=== PATIENT | female | born 1945 | race Two or more races ===

== ENCOUNTER 2017-11-17 14:52 | Emergency (ER) | payer OTHER ==
[2017-11-17] MEDS ORDERED: predniSONE 20 MG TAB PO ONE (15:20)
[2017-11-17] MEDS ORDERED: valACYclovir 500 MG TAB PO ONE (15:20)
--- NOTE | 2017-11-17 15:22 | EDPHY ---
H & P Stated Complaint: L facial droop Time Seen by Provider: 11/17/17 15:10 HPI/ROS: CHIEF COMPLAINT: Left-sided facial weakness HISTORY OF PRESENT ILLNESS: The patient is a 72-year-old [place]i-speaking female who states that she has had left-sided facial droop for the last 4 days. She states that it began with pain that is now dulled. No fever. No trauma. No involvement of her hands or legs. No dizziness. No trouble ambulating. No trouble with speech. No recent fevers or infections. No chest pain. No rash. No vision changes. REVIEW OF SYSTEMS: Constitutional: denies: chills, fever, recent illness, recent injury EENTM: denies: blurred vision, double vision, nose congestion Respiratory: denies: cough, shortness of breath Cardiac: denies: chest pain, irregular heart rate, lightheadedness, palpitations Gastrointestinal/Abdominal: denies: abdominal pain, diarrhea, nausea, vomiting, blood streaked stools Genitourinary: denies: dysuria, frequency, hematuria, pain Musculoskeletal: denies: joint pain, muscle pain Skin: denies: lesions, rash, jaundice, bruising Neurological: See HPI denies: headache Hematologic/Lymphatic: denies: blood clots, easy bleeding, easy bruising Immunologic/allergic: denies: HIV/AIDS, transplant - Physical Exam General Appearance: WD/WN, mild distress Eyes, Ears, Nose, Throat Exam: PERRL/EOMI, normal ENT inspection, pharynx normal Neck: non-tender, full range of motion, supple, normal inspection. No: stiff neck, tender lateral Cardiovascular/Chest: normal peripheral pulses, regular rate, rhythm Respiratory: chest non-tender, lungs clear, normal breath sounds. No: crackles , rhonchi Gastrointestinal/Abdominal: normal bowel sounds, non tender, soft Back Exam: normal inspection Extremity: normal range of motion, non-tender, normal inspection Mental Status: alert, oriented x 3 CN's Exam: Left-sided facial droop including the forehead, on equal smile, normal tongue. normal hearing, normal speech, PERRL, normal eye position, normal gag reflex, normal pupil position, normal speech. No: gaze palsy, Coordination/Gait: normal finger to nose, normal gait Motor/Sensory: normal. No: motor deficit, sensory deficit, pronator drift (R), pronator drift (L), weak motor strength RUE, weak motor strength LUE, weak motor strength RLE, weak motor strength LLE DTR: tricep (R): 2+, tricep (L): 2+, knee (R): 2+, knee (L): 2+ Skin Exam: warm/dry, normal color Lymphatic: no adenopathy Source: Patient Exam Limitations: No limitations - Personal History Current Tetanus/Diphtheria Vaccine: Yes Current Tetanus Diphtheria and Acellular Pertussis (TDAP): Yes - Medical/Surgical History Hx Asthma: No Hx Chronic Respiratory Disease: No Hx Diabetes: Yes Hx Cardiac Disease: No Hx Renal Disease: No Hx Cirrhosis: No Hx Alcoholism: No Hx HIV/AIDS: No Hx Splenectomy or Spleen Trauma: No Other PMH: HTN, DM, - Family History Significant Family History: No pertinent family hx - Social History Smoking Status: Never smoked Alcohol Use: None Constitutional: Initial Vital Signs Temperature (C) 36.8 C 11/17/17 15:01 Heart Rate 81 11/17/17 15:01 Respiratory Rate 16 11/17/17 15:01 Blood Pressure 204/98 H 11/17/17 15:01 O2 Sat (%) 96 11/17/17 15:01 O2 Delivery Mode Room Air Allergies/Adverse Reactions: No Known Allergies Allergy (Unverified 11/17/17 14:59) Home Medications: Medication Instructions Recorded Aspirin 11/17/17 Irbesartan 11/17/17 Metformin HCl 11/17/17 Valacyclovir HCl [Valtrex] 1,000 mg PO TID #21 tab 11/17/17 predniSONE 60 mg PO DAILY #15 tab 11/17/17 Medical Decision Making - Diagnostics Imaging Results: Imaging Impressions Brain MRI 11/17/17 15:19 Impression: 1. Possible tiny foci of diffusion restriction in the left chavez, which could represent a small lacunar infarct versus artifact. 2. Mild periventricular and deep hemispheric white matter change that can be seen with small vessel ischemic disease. No other findings for an acute infarct. 3. Generalized cerebral atrophy. Results called and discussed with Gregorio Quintana M.D., on November 17, 2017 at 1732. ED Course/Re-evaluation: 5:30 p.m. the MRI is reassuring. 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 I will treat with valacyclovir and prednisone. She also has a elevated TSH. I will add on a free T4 and have her follow up with her primary. The patient understands and agrees with this plan as does her family. Differential Diagnosis: Partial list of the Differential diagnosis considered include but were not limited to; CVA, Heredia's palsy, hypothyroid and although unlikely based on the history and physical exam, I also considered zoster, cellulitis, trauma. I discussed these differential diagnoses and the plan with the patient as well as the usual and expected course. The patient understands that the diagnosis is provisional and that in medicine we are not always correct and that further workup is often warranted. Usual and customary warnings were given. All of the patient's questions were answered. The patient was instructed to return to the emergency department should the symptoms at all worsen or return, otherwise to followup with the physician as we discussed. - Data Points Laboratory Results: Laboratory Results 11/17/17 15:14 11/17/17 15:14 11/17/17 11/17/17 11/17/17 15:14 15:14 15:14 WBC 10.05 10^3/uL H 10^3/uL (3.80-9.50) RBC 4.77 10^6/uL 10^6/uL (4.18-5.33) Hgb 15.5 g/dL g/dL (12.6-16.3) Hct 44.3 % % (38.0-47.0) MCV 92.9 fL fL (81.5-99.8) MCH 32.5 pg pg (27.9-34.1) MCHC 35.0 g/dL g/dL (32.4-36.7) RDW 13.0 % % (11.5-15.2) Plt Count 206 10^3/uL 10^3/uL (150-400) MPV 9.7 fL fL (8.7-11.7) Neut % (Auto) 43.4 % % (39.3-74.2) Lymph % (Auto) 43.3 % % (15.0-45.0) [place] % (Auto) 9.7 % % (4.5-13.0) Eos % (Auto) 2.2 % % (0.6-7.6) Baso % (Auto) 0.8 % % (0.3-1.7) Nucleat RBC Rel Count 0.0 % % (0.0-0.2) Absolute Neuts (auto) 4.37 10^3/uL 10^3/uL (1.70-6.50) Absolute Lymphs (auto) 4.35 10^3/uL H 10^3/uL (1.00-3.00) Absolute Monos (auto) 0.97 10^3/uL H 10^3/uL (0.30-0.80) Absolute Eos (auto) 0.22 10^3/uL 10^3/uL (0.03-0.40) Absolute Basos (auto) 0.08 10^3/uL 10^3/uL (0.02-0.10) Absolute Nucleated RBC 0.00 10^3/uL 10^3/uL (0-0.01) Immature Gran % 0.6 % % (0.0-1.1) Immature Gran # 0.06 10^3/uL 10^3/uL (0.00-0.10) Sodium 144 mEq/L mEq/L (135-145) Potassium 4.5 mEq/L mEq/L (3.3-5.0) Chloride 102 mEq/L mEq/L (97-110) Carbon Dioxide 24 mEq/l mEq/l (22-31) Anion Gap 18 mEq/L H mEq/L (8-16) BUN 18 mg/dL mg/dL (7-23) Creatinine 0.7 mg/dL mg/dL (0.6-1.0) Estimated GFR > 60 Glucose 141 mg/dL H mg/dL (70-100) Calcium 10.0 mg/dL mg/dL (8.5-10.4) TSH 9.210 uIU/mL H uIU/mL (0.465-4.680) Free T4 0.97 ng/dL ng/dL (0.59-2.19) Medications Given: Discontinued Medications Prednisone (Prednisone) 60 mg PO EDNOW ONE Stop: 11/17/17 15:21 Last Admin: 11/17/17 15:31 Dose: 60 mg Valacyclovir HCl (Valtrex) 1,000 mg PO EDNOW ONE Stop: 11/17/17 15:21 Last Admin: 11/17/17 15:31 Dose: 1,000 mg Departure - Departure Disposition: Home, Routine, Self-Care Clinical Impression: Heredia's palsy Hypothyroidism Qualifiers: Hypothyroidism type: unspecified Qualified Code(s): E03.9 - Hypothyroidism, unspecified Condition: Fair Instructions: Heredia Palsy (ED), Hypothyroidism (ED) Additional Instructions: Carmela josé sharon de seguimiento con la clinica [facility] en 2 - 3 jarquin. Referrals: [facility],. [Clinic] - 2-3 days, call for appt. Prescriptions: predniSONE 60 mg PO DAILY #15 tab Valacyclovir HCl [Valtrex] 1,000 mg PO TID #21 tab Print Language: [place]
[2017-11-17 15:32] LABS: PLATELET COUNT 206 10^3/uL (150-400)
[2017-11-17 18:06] VITALS: BP 172/85
== END 2017-11-17 18:06 | disposition home or self-care (01) ==
DX: G51.0 Bell's palsy (principal); E03.9 Hypothyroidism, unspecified; I10 Essential (primary) hypertension; E11.9 Type 2 diabetes mellitus without complications; Z79.82 Long term (current) use of aspirin; Z79.84 Long term (current) use of oral hypoglycemic drugs
CPT/HCPCS: J7512